=== PATIENT | female | born 1960 | race Caucasian/White ===

== ENCOUNTER 2019-07-16 12:53 | Outpatient (CLI) | payer BC, OTHER ==
--- NOTE | 2019-07-16 14:09 | RAD ---
PA AND LATERAL VIEWS CHEST: Date: 07/16/2019 HISTORY: COVID-19 infection. FINDINGS/IMPRESSION: Comparison made with exam of 05/19/2014. The heart size is normal. The lungs are well expanded with ground-glass infiltrates in the peripheral aspect of the right upper lung. No pneumothoraces or pleural effusions are seen. POS: [facility]
== END 2019-07-16 12:54 | disposition home or self-care (01) ==
LOC: SCSRAD 12:53
PROVIDERS: ATTEND Family Medicine
DX: U07.1 COVID-19 (principal)
CPT/HCPCS: 71046